=== PATIENT | male | born 1970 | race Caucasian/White ===

== ENCOUNTER → 2018-09-22 | Outpatient (CLI) | payer MEDICARE, MEDICAID ==
--- NOTE | 2018-09-22 15:16 | Diagnostic Imaging Report ---
INDICATION: Preoperative examination. TECHNIQUE: Two view chest 3 1 PM CORRELATION STUDY: None FINDINGS: The heart size, mediastinal configuration and pulmonary vasculature are within normal limits. The lungs are clear with no consolidating infiltrate. There is no significant pleural effusion or pneumothorax. Visualized osseous structures are unremarkable. IMPRESSION: 1. No radiographic evidence for acute abnormality of the chest. Dictated by: Dictated on workstation # [id number]
== END ==
LOC: RAD FS 14:49
PROVIDERS: ATTEND Family Medicine
DX: Z01.818 Encounter for other preprocedural examination (principal)
CPT/HCPCS: 71046

== ENCOUNTER 2020-12-22 12:24 | Emergency (ER) | payer MEDICARE, MEDICAID ==
[~2020-12-22] VITALS: Ht 165 cm; Wt 72.0 kg
--- OUTSIDE RECORDS SUMMARY | 2020-12-22 12:30 | XMS REPORT | Encounter Summary ---
Author Author [facility] Organization [facility] Address Unknown Phone Unavailable Care Team Providers Care Animal Care Service Worker Name Role Phone Isai Ibarra OD Unavailable Hailee Barrientos MD Unavailable Lisset Benites MEAT LOINER-AGRISCIENCE TECHNOLOGY INSTRUCTOR Unavailable [phone] Luis F Gutierrez MD Unavailable Madalyn Brown Unavailable Unavailable Mono Sullivan MD Unavailable Kyle Clemens MD PCP Reason for Visit * Reason Comments Eye Problem Pt present for annual DFE. Vision Change Pt unable to report VA baez ges OU. No hx MRx wear. Other Pt reports mattered OS when waking up x2 days ago. Itchy Eye Pt reports FBS OU inconsist ently, some itchiness OU, somewhat relieved with AT's. Encounter Details Care Team Description Date Type Department Isai Ibarra, OD [address] [place] [address] [place] [id number] Optic cupping of both eyes (Primary Dx); Pinguecula of both eyes; Allergic conjunctivitis of left eye; Astigmatism with presbyopia, bilateral 11/27/2020 Office Visit Eye Care: [address] [place] [id number] Social History Date Tobacco Use Types Packs/Day Years Used Never Smoker Smokeless Tobacco: Never Used Comments Alcohol Use Standard Drinks/Week No 0 (1 standard drink = 0.6 o z pure alcohol) Sex Assigned at Date Recorded Male 11/23/2019 1:18 PM CDT Date Recorded COVID-19 Exposure Response 11/27/2020 1:43 PM CDT In the last month, have you been in contact with No / Unsure someone who was confirmed or suspected to have Coronavirus / COVID-19? documented as of this encounter Functional Status Date of Assessment Functional Status Response 09/30/2015 Does the patient have a hearing impairment: No 09/30/2015 Does the patient have a visual impairment: No 09/30/2015 Does the patient have impaired ambulation: Yes 09/30/2015 Does the patient have an activity of daily living Ye s (ADL) impairment: 09/30/2015 Does the patient have an instrumental activity of Ye s daily living (IADL) impairment: Date of Assessment Cognitive Status Response 09/30/2015 Does the patient have a cognitive impairment: Yes documented as of this encounter Progress Notes * Isai Ibarra, OD - 11/27/2020 1:40 PM CDT There is no height or weight on file to calculate BMI. Assessment and Plan: A/ 1. Enlarged C/D OU -stable appearance, unable to attain IOP. +Fhx of glaucoma: father. 2. Pinguecula OU 3. Allergic conjunctivitis OU -patient has been rubbing a lot lately. Also moderate mucous OS 4. Astigmatism with Presbyopia -unable to attain VA today. No visual complaints reported by father. P/ 1. Monitor with dilated fundus examination. Consider OCT at next examination, maybe difficult due to poor fixation. 2. Continue AT's PRN 3. Recommended Zaditor BID OU/PRN 4. Discussed the potential need for OTC readers if doing near tasks. Pattifinesse ts father reports not having any difficulty at this time, not performing any sig nificant near tasks. documented in this encounter Plan of Treatment Not on filedocumented as of this encounter Visit Diagnoses Diagnosis Optic cupping of both eyes - Primary Pinguecula of both eyes Pinguecula Allergic conjunctivitis of left eye Other chronic allergic conjunctivitis Astigmatism with presbyopia, bilateral documented in this encounter Additional Health Concerns Assessment Noted Time A fall risk assessment has been completed for the pat ient 12/28/2019 9:29 AM CDT documented as of this encounter Eye Exam Right eye Left eye Dist sc CSM CSM Light Shape React Dark 3 Round Slow Right eye 4 3 Round Brisk Left eye 4 Oriented x3: Yes Mood/Affect: Normal Both eyes: 1.0% Tropicamide, 2.5% Phenyl ephrine @ 2:12 PM Right eye Left eye External Normal Normal Right eye Left eye Lids/Lashes Normal Normal Conjunctiva/Sclera Pinguecula Pinguecula Cornea Punctate epithelial erosions Punctate epithelial erosions, Mucous in TF Anterior Chamber Deep and quiet Deep and quiet Iris Flat Flat Lens Clear Clear Vitreous Normal Normal Right eye Left eye Disc Sharp, healthy rim Sharp, healthy rim C/D Ratio 0.7 0.7 Macula Flat Flat Vessels Normal caliber and number Normal calib er and number Periphery Attached, no breaks or tears Attached, no breaks or tears Cylinder [place] Dist VA Sphere +1.00 180 csm Right eye Friendly +0.75 180 csm Left eye Friendly
--- OUTSIDE RECORDS SUMMARY | 2020-12-22 12:30 | XMS REPORT | Clinical Summary ---
Author Author [facility] Organization [facility] Address Unknown Phone Unavailable Care Team Providers Care Fibrous Wallboard Inspector Name Role Phone Isai Ibarra OD Unavailable Hailee Barrientos MD Unavailable Lisset Benites VEHICLE CARE SPECIALIST-SPA ASSISTANT MANAGER Unavailable [phone] Luis F Gutierrez MD Unavailable Madalyn Brown Unavailable Unavailable Mono Sullivan MD Unavailable Kyle Clemens MD PCP Source Comments Some departments are not documenting in the electronic medical record. If you d o not see the information that you expected, contact Release of Information in [facility] Information Management department at [phone] for further assistan ce in locating additional records.[facility] Allergies Comments Active Allergy Reactions Severity Noted Date Codeine UNKNOWN 06/22/2012 Ketamine ITCHING 07/12/2013 Penicillins UNKNOWN 06/22/2012 Medications End Date Status Medication Sig Dispensed Refills Start Date Active diclofenac (VOLTAREN) 1 % Apply four g 300 g 0 topical gel topically to 0 affected area four times daily. Active Problems Problem Noted Date Hordeolum externum of left lower eyelid 03/23/2016 Last Assessment & Plan: Formatting of this note might be differ ent from the original. - Resolving hordeolum LLL, mild lid leticia thema still present, non tender - Warm compresses 2x/day or prn - Lid hygiene Blepharitis of upper and lower eyelids of both eyes 03/23/2016 Last Assessment & Plan: Formatting of this note might be differ ent from the original. 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 06/22/2012 Esophageal cyst Encounters Care Team Description Date Type Specialty Isai Ibarra Celine, OD Optic cupping of both eyes (Primary Dx); Pinguecula of both eyes; Allergic conjunctivitis of left eye; Astigmatism with presbyopia, bilateral 11/27/2020 Office Visit Optometry 11/27/2020 Travel from Last 3 Months Surgical History Surgery Date Site/Laterality Comments MOUTH SURGERY patient is sedated for dent al work, teeth have been pulled and filled URETER SURGERY 1974 Bilateral ureter was dila amador, mother is uncertain of which side at 18mos of age EAR SURGERY HERNIA REPAIR UPPER GASTROINTESTINAL 11/04/2015 N/A ESOPHAG OGASTRODUODENOSCOPY ENDOSCOPIC ULTRASOUND ENDOSCOPY performed by Luis F Gutierrez MD at ENDO/GI COLONOSCOPY 11/04/2015 N/A COLONOSCOPY per formed by Luis F Gutierrez MD at ENDO/GI Medical History Medical History Date Comments Mental disability 1973 since Joint pain Esophageal cyst Family History Medical History Relation Name Comments Arthritis Brother Ulcerative Colitis Brother Anemia Father Arthritis Father Hypertension Father Heart problem Maternal Grandfather Arthritis Maternal Grandmother Diabetes Maternal Grandmother Heart problem Maternal Grandmother Hypertension Maternal Grandmother Anesthetic Complication Mother Arthritis Mother Back pain Mother Basal Cell Carcinoma Mother Cancer Mother skin cancer, basal and squamous Colon Polyps Mother Diabetes Mother Heart problem Mother Hypertension Mother Joint Pain Mother Lung Disease Mother Squamous Cell Carcinoma Mother Stroke Mother Melanoma Other Cancer-Breast Paternal Grandmother Hypertension Sister Cancer-Colon Neg Hx Relation Name Status Comments Brother Alive Brother Alive Father Alive Maternal Grandfather Maternal Grandmother Other Mother Alive Other Paternal Grandfather Paternal Grandmother Sister Alive Social History Date Tobacco Use Types Packs/Day [...] or suspected to have Coronavirus / COVID-19? Last Filed Vital Signs Reading Time Taken Comments Vital Sign 139/91 12/28/2019 9:36 AM CDT Blood Pressure 99 12/28/2019 9:36 AM CDT Pulse 36.9 C (98.4 F) 11/21/2017 1:55 PM CDT Temperature 16 11/21/2017 1:55 PM CDT Respiratory Rate 99% 12/28/2019 9:36 AM CDT Oxygen Saturation - - Inhaled Oxygen Concentration 71.7 kg (158 lb) 02/18/2020 10:47 AM MODEL MAKER PLASTIC Weight 162.6 cm (5' 4") 02/18/2020 10:47 AM MODEL MAKER PLASTIC Height 27.12 02/18/2020 10:47 AM MODEL MAKER PLASTIC Body Mass Index Plan of Treatment Health Maintenance Due Date Last Done Comments MEDICARE ANNUAL WELLNESS 1972 VISIT HIV SCREENING 1987 DTAP/TDAP VACCINES ( - 1990 Tdap) HEPATITIS C SCREENING 1990 PHYSICAL (COMPREHENSIVE) 1990 EXAM INFLUENZA VACCINE 09/28/2020 Results Not on filefrom Last 3 Months Insurance Type Payer Benefit Subscriber ID Effective Phone Address Plan / Dates Group [place] [id number] 2019-[id number] resent Medicaid [employer] [employer] [id number] 2018-P [facility]ALTH [phone] Advance Directives Patient Vegetable Cook Explanation Type Date Recorded Advance 09/23/2015 9:35 AM Directive/DPOA
--- OUTSIDE RECORDS SUMMARY | 2020-12-22 12:30 | XMS REPORT | Encounter Summary ---
Author Author [facility] Organization [facility] Address Unknown Phone Unavailable Care Team Providers Care Chemical Educator Name Role Phone Isai Ibarra OD Unavailable Hailee Barrientos MD Unavailable Lisset Benites FINANCE ADMIN-SILVICULTURIST Unavailable [phone] Luis F Gtuierrez MD Unavailable Madalyn Brown Unavailable Unavailable Mono Sullivan MD Unavailable Kyle Clemens MD PCP Encounter Details Care Team Description Date Type Department 11/27/2020 Travel Social History Date Tobacco Use Types Packs/Day [...] impairment: Yes documented as of this encounter Plan of Treatment Not on filedocumented as of this encounter Visit Diagnoses Not on filedocumented in this encounter Additional Health Concerns Assessment Noted Time A fall risk assessment has been completed for the pat ient 12/28/2019 9:29 AM CDT documented as of this encounter
[2020-12-22] MEDS ORDERED: LACTATED RINGERS 1,000 ML IV SCH (13:00)
--- NOTE | 2020-12-22 13:04 | ED Cough/URI ---
General Chief Complaint: COVID19 Suspect/Confirmed Stated Complaint: COUGH; COVID+ Nursing Triage Note: ARRIVED VIA AMB. PT TESTED POSITIVE FOR COVID ON THE . PT IS DEVELOPMENTALLY DELAYED. MOM STATES HE HAS A COUGH, IS WEAK, AND HAS NO APPITITE. PT IS ALERT ET VERY TALKATIVE. History of Present Illness Date Seen by Provider: Dec 22, 2020 Time Seen by Provider: 12:35 Initial Comments 50-year-old male with developmental delay is brought in by family for evaluation. Patient tested positive for Covid on the . Patient symptoms started a few days prior to that. Patient mom reports he has a cough he is weak and decreased appetite. Patient does not have a lot of complaints. Patient is very alert talkative and active. No reports of recent fever. No reports of nausea vomiting or diarrhea. Allergies and Home Medications Allergies Coded Allergies: Penicillins (Verified Allergy, Unknown, 12/22/20) codeine (Verified Allergy, Unknown, 12/22/20) ketamine (Verified Allergy, Unknown, 12/22/20) Patient Home Medication List Home Medication List Reviewed: Yes Budesonide (Pulmicort Flexhaler) 180 Mcg Aer.pow.ba, 180 MCG IH TID Prescribed by: BRENDA LAWSON on 12/22/20 1410 Review of Systems Review of Systems Constitutional: No chills, No fever EENTM: no symptoms reported Respiratory: cough; No short of breath, No wheezing Cardiovascular: no symptoms reported Gastrointestinal: no symptoms reported Genitourinary: no symptoms reported Musculoskeletal: no symptoms reported Skin: no symptoms reported Psychiatric/Neurological: See HPI Past Jauurlk-Cdnhsl-Lokehg Hx Patient Social History Tobacco Use?: No Substance use?: No Alcohol Use?: No Physical Exam Vital Signs - First Documented 12/22/20 12:35 Temp 35.9 Pulse 108 Resp 16 B/P (MAP) 145/92 (109) Pulse Ox 95 O2 Delivery Room Air Capillary Refill : Less Than 3 Seconds Height: '" Weight: lbs. oz. kg; 26.00 BMI Method: General Appearance: WD/WN, no apparent distress Respiratory: no respiratory distress, no accessory muscle use Cardiovascular: regular rate, rhythm, no edema Gastrointestinal: non tender, soft Extremities: normal inspection Neurologic/Psychiatric: alert, normal mood/affect, other (Patient with baseline mentation with some mild developmental delay) Skin: normal color, warm/dry Progress/Results/Core Measures Suspected Sepsis SIRS Temperature: Pulse: 108 Respiratory Rate: 16 Blood Pressure 145 /92 Mean: 109 Results/Orders My Orders Orders - BRENDA LAWSON DO Cbc With Automated Diff (12/22/20 13:00) Comprehensive Metabolic Panel (12/22/20 13:00) Ferritin (12/22/20 13:00) LDH (12/22/20 13:00) Crp Fs (12/22/20 13:00) Troponin I Fs (12/22/20 13:00) Lactic Acid Analyzer (12/22/20 13:00) Protime With Inr (12/22/20 13:00) Partial Thromboplastin Time (12/22/20 13:00) Lactated Ringers (Lr 1000 Ml Iv Solution (12/22/20 13:00) Ondansetron Oral Dissolve Tab (Zofran (12/22/20 13:08) Ondansetron Oral Dissolve Tab (Zofran (12/22/20 13:10) Chest 1 View Ap/Pa Only (12/22/20 13:24) Vital Signs/I&O 12/22/20 12:35 Temp 35.9 Pulse 108 Resp 16 B/P (MAP) 145/92 (109) Pulse Ox 95 O2 Delivery Room Air Capillary Refill : Less Than 3 Seconds Blood Pressure Mean: 109 Progress Note : Progress Note Patient oxygen maintained in the mid upper 90s with no acute distress. Patient tolerated p.o. intake with no difficulty. Patient does not show any signs of dehydration. Patient does have pneumonia on x-ray. We will provide him with Pulmicort based on studies that show efficacy with Covid pneumonia. Patient stable and discharged Diagnostic Imaging Diagonstic Imaging: Xray Plain Films/CT/US/NM/MRI: chest Comments Date of Exam:12/22/20 CHEST 1 VIEW AP/PA ONLY INDICATION: COVID. FINDINGS: Extensive bilateral largely peripheral infiltrates, greater right as new finding from prior. While nonspecific, the appearance is congruent with the provided history of COVID pneumonia. No effusion, pneumothorax, or failure pattern. IMPRESSION: New bilateral patchy largely peripheral infiltrates, asymmetric, greater right, consistent with nonspecific infectious etiology including COVID. Departure Impression Primary Impression: Pneumonia due to COVID-19 virus Disposition: 01 HOME, SELF-CARE Condition: Stable Departure-Patient Inst. Referrals: SELF,PEDRITO MD (PCP/Family) Primary Care Physician Patient Instructions: COVID-19 ED Add. Discharge Instructions: Please monitor your oxygen at home with feelings of shortness of breath Follow-up with your primary care provider in a couple days for recheck All discharge instructions reviewed with patient and/or family. Voiced understanding. Scripts Ondansetron (Ondansetron Odt) 4 Mg Tab.rapdis 4 MG PO Q6H PRN for NAUSEA/VOMITING, #30 TAB 0 Refills Prov: BRENDA LAWSON DO 12/22/20 Budesonide (Pulmicort Flexhaler) 180 Mcg Aer.pow.ba 180 MCG IH TID, #1 EA 1 Refill 3 puffs 3 times a day Prov: BRENDA LAWSON DO 12/22/20 BRENDA LAWSON DO Dec 22, 2020 13:04
[2020-12-22] MEDS ORDERED: ONDANSETRON 4 MG (ZOFRAN) ORAL DISSOLVE TAB SL STA (13:08)
[2020-12-22] MEDS ORDERED: ONDANSETRON 4 MG (ZOFRAN) ORAL DISSOLVE TAB ONE (13:10)
--- NOTE | 2020-12-22 13:49 | Diagnostic Imaging Report ---
INDICATION: COVID. FINDINGS: Extensive bilateral largely peripheral infiltrates, greater right as new finding from prior. While nonspecific, the appearance is congruent with the provided history of COVID pneumonia. No effusion, pneumothorax, or failure pattern. IMPRESSION: New bilateral patchy largely peripheral infiltrates, asymmetric, greater right, consistent with nonspecific infectious etiology including COVID. Dictated by: Dictated on workstation # [id number]
[2020-12-22] MEDS ORDERED: BUDE180A IH (14:10)
[2020-12-22] MEDS ORDERED: ONDA4TAB11 PO (14:42)
[2020-12-22 14:49] VITALS: BP 145/92
== END 2020-12-22 14:49 | disposition home or self-care (01) ==
LOC: EDUNIT# 12:24 → ER FS 12:27
DX: U07.1 COVID-19 (principal); J12.82 Pneumonia due to coronavirus disease 2019
CPT/HCPCS: 71045

== ENCOUNTER 2020-12-24 15:12 | Emergency (ER) | payer MEDICARE, MEDICAID ==
[~2020-12-24] VITALS: Ht 160 cm; Wt 70.0 kg
[~2020-12-24 15:12] MED LIST: BUDE180A IH; ONDA4TAB11 PO
--- NOTE | 2020-12-24 15:34 | ED Cough/URI ---
General Chief Complaint: Cough/Cold/Flu Symptoms Stated Complaint: COVID+ Nursing Triage Note: PT CAME IN WITH HIS FATHER WITH A DX OF COVID FOR 11 DAYS. THEY ARE WANTING AN OXYGEN CONCENTRATOR BC THE PT IS CURRENTLY USING HIS MOMS AND THEY STATED HIS OXYGEN SATS DROPPED TO 84 THIS AM. Source: patient, family Exam Limitations: no limitations History of Present Illness Date Seen by Provider: Dec 24, 2020 Time Seen by Provider: 15:18 Initial Comments 50-year-old male that is mentally delayed coming in with his father due to what he perceived was his oxygen being low. He has day 11 of a Covid diagnosis. He has only had cough. Has not had any fever, vomiting, diarrhea, or any concerns recently. They have been taking his oxygen regularly and they thought his sat was in the 80s so they gave him oxygen that his mother had and placed him on 1 L. The patient is denying any other symptoms at this time. Allergies and Home Medications Allergies Coded Allergies: Penicillins (Verified Allergy, Unknown, 12/22/20) codeine (Verified Allergy, Unknown, 12/22/20) ketamine (Verified Allergy, Unknown, 12/22/20) Patient Home Medication List Home Medication List Reviewed: Yes Budesonide (Pulmicort Flexhaler) 180 Mcg Aer.pow.ba, 180 MCG IH TID Prescribed by: BRENDA LAWSON on 12/22/20 1410 Ondansetron (Ondansetron Odt) 4 Mg Tab.rapdis, 4 MG PO Q6H PRN for NAUSEA/VOMITING Prescribed by: BRENDA LAWSON on 12/22/20 1442 Review of Systems Review of Systems Constitutional: No chills, No fever EENTM: No blurred vision Respiratory: cough; No short of breath Cardiovascular: No chest pain Gastrointestinal: No abdominal pain Genitourinary: no symptoms reported Musculoskeletal: no symptoms reported Skin: no symptoms reported Psychiatric/Neurological: No Symptoms Reported Hematologic/Lymphatic: No Symptoms Reported Immunological/Allergic: no symptoms reported All Other Systems Reviewed Negative Unless Noted: Yes Past Gpidaqx-Lirilo-Ebesfy Hx Patient Social History Tobacco Use?: No Use of E-Cig and/or Vaping dev: No Substance use?: No Alcohol Use?: No Pt feels they are or have been: No Past Medical History Appendectomy Physical Exam Vital Signs - First Documented 12/24/20 15:15 Temp 35.9 Pulse 112 Resp 18 Pulse Ox 100 O2 Delivery Room Air O2 Flow Rate 1.00 Capillary Refill : Less Than 3 Seconds Height: '" Weight: lbs. oz. kg; 27.00 BMI Method: General Appearance: WD/WN, no apparent distress HEENT: PERRL/EOMI, normal ENT inspection, pharynx normal Neck: non-tender, full range of motion, supple, normal inspection Respiratory: chest non-tender, lungs clear, normal breath sounds, no resp iratory distress, no accessory muscle use Cardiovascular: regular rate, rhythm, no edema, no murmur Gastrointestinal: normal bowel sounds, non tender, soft Extremities: normal range of motion, non-tender, normal inspection, no pedal edema, no calf tenderness, normal capillary refill Neurologic/Psychiatric: no motor/sensory deficits, alert, normal mood/affect Skin: normal color, warm/dry Lymphatic: no adenopathy Progress/Results/Core Measures Suspected Sepsis SIRS Temperature: Pulse: 112 Respiratory Rate: 18 Blood Pressure / Mean: Results/Orders Vital Signs/I&O 12/24/20 12/24/20 15:15 15:15 Temp 35.9 Pulse 112 Resp 18 B/P (MAP) Pulse Ox 100 O2 Delivery Room Air Nasal Cannula O2 Flow Rate 1.00 Capillary Refill : Less Than 3 Seconds Progress Note : Progress Note 50-year-old male with above history coming in because they thought his oxygen was low at home and they placed him on a family members oxygen. On arrival here we took off the 1 L of oxygen and his oxygen stayed at 99 to 100% persistently even with him moving around the room. He is breathing very comfortably, and does not feel short of breath at all. His hands were cold and I assume this likely had something to do with the low reading at home. Given I believe this was an anomalous reading and I believe he is likely towards the end of his Covid infection, I believe he is stable for discharge with outpatient follow-up. He was sent home with strict return precautions. Departure Impression Primary Impression: Pneumonia due to COVID-19 virus Disposition: HOME, SELF-CARE Condition: Stable Departure-Patient Inst. Decision time for Depature: 15:33 Referrals: SELFPEDRITO MD (PCP/Family) Primary Care Physician Patient Instructions: COVID-19 ED Add. Discharge Instructions: You were seen in the emergency department for low oxygen levels at home. Fortunately, your oxygen was actually normal here even without being on any type of oxygen. Your numbers were 99 to 100% here consistently. If you have cold hands this can make readings falsely low at home. Some machines also are not as accurate as the ones we have here. You do not need oxygen at this time. If you begin breathing hard, begin feeling short of breath, have any chest pain, or any other concerns and please come back to the ER. Otherwise please follow back up with Dr. Clemens. MARE BRAUN MD Dec 24, 2020 15:34
[2020-12-24 15:35] VITALS: BP 126/49
== END 2020-12-24 15:36 | disposition home or self-care (01) ==
LOC: EDUNIT# 15:12 → ER FS 15:14
DX: U07.1 COVID-19 (principal); J12.82 Pneumonia due to coronavirus disease 2019
CPT/HCPCS: 99281

== ENCOUNTER → 2021-10-06 | Outpatient (CLI) | payer MEDICARE, MEDICAID ==
--- NOTE | 2021-10-06 14:38 | Diagnostic Imaging Report ---
Indication: Shortness of breath. Time of Exam: 2:10 PM Correlation is made with prior chest from 09/22/2018. Findings: The heart size is normal. The pulmonary vascularity is unremarkable. The lungs are clear. No infiltrate, effusion or pneumothorax is detected. Impression: No acute cardiopulmonary process is detected. Dictated by: Dictated on workstation # [id number]
== END ==
LOC: RAD FS 13:55
PROVIDERS: ATTEND Nurse Practitioner Family
DX: R06.02 Shortness of breath (principal); Z86.16 Personal history of COVID-19
CPT/HCPCS: 71046